=== PATIENT | male | born 1970 | race Caucasian/White ===

== ENCOUNTER 2018-01-26 16:15 | Observation (INO) | payer OTHER ==
[2018-01-26] VITALS (7 sets, daily range): BP systolic 152–193; BP diastolic 93–111; PULSE 58–69; RESP 16–18; TEMP 97.8–98.1; O2SAT 97–100
[~2018-01-26] VITALS: Ht 200.7 cm; Wt 122.5 kg
[2018-01-26] MEDS ORDERED: ZANT150T2 PO (18:05)
[2018-01-26] MEDS ORDERED: tumeric (18:05)
[2018-01-26] MEDS ORDERED: FISHCAP4 PO (18:05)
[2018-01-26] MEDS ORDERED: cla (18:05)
[2018-01-26] MEDS ORDERED: SACC1CAP3 PO (18:05)
[2018-01-26] MEDS ORDERED: ASPIRIN 81 MG CHEW TAB CHEW ONE (18:30)
[2018-01-26] MEDS ORDERED: SODIUM CHLORIDE 0.9% FLUSH 10 ML FLUSH IVF PRN (18:30)
[2018-01-26 18:42] LABS: AUTOMATED NEUTROPHIL # 4.4 TH/MM3 (1.8-7.7); BASOPHIL % 0.6 % (0.0-2.0); EOSINOPHIL # 0.1 TH/MM3 (0-0.4); EOSINOPHIL % 0.9 % (0.0-4.0); LYMPH % 27.7 % (9.0-44.0); MEAN CELL VOLUME 92.2 FL (80.0-100.0); MEAN CORPUSCULAR HGB CONC 35.7 % (32.0-36.0); MEAN PLATELET VOLUME 7.8 FL (7.0-11.0); MONO % 9.3 % (0.0-8.0); MONOCYTE # 0.7 TH/MM3 (0-0.9); NEUT % 61.5 % (16.0-70.0); PLATELET COUNT 189 TH/MM3 (150-450); RED BLOOD COUNT 4.56 MIL/MM3 (4.50-5.90); WHITE BLOOD COUNT 7.1 TH/MM3 (4.0-11.0)
--- NOTE | 2018-01-26 18:44 | PD ---
HPI Chief Complaint: Chest Pain Time Seen by Provider: 18:17 Travel History International Travel<30 days: No Contact w/Intl Traveler<30days: No Traveled to known affect area: No History of Present Illness HPI 47-year-old male presents to the emergency Department treatment we show bilateral lower chest pain that started approximately 3 hours prior to arrival. Patient is on his way home from [place] we start with chest pain, numbness to all extremities and cramping in his lower legs. Patient reports history of high triglycerides, hypertension. He has not been on any medications in several months. He states this was due to lack of insurance and unable to follow-up with her primary care physician. Patient denies any fevers or chills. No hemoptysis. No leg edema. No history DVT or PE. He denies any exacerbating or relieving factors. Moderate severity. 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) Social History Alcohol Use: Yes (DAILY) Tobacco Use: No Substance Use: No Allergies-Medications (Allergen,Severity, Reaction): Coded Allergies: No Known Allergies (Unverified , 01/26/18) Reported Meds & Prescriptions Reported Meds & Active Scripts Active Reported Probiotic (Saccharomyces Boulardii) 250 Mg Cap 250 Mg PO BID [cla] Zantac (Ranitidine HCl) 150 Mg Tab 150 Mg PO BID [tumeric] Fish Oil + D3 (Fish Oil-Cholecalciferol) 1,200-1,000 Mg-Unit Cap 1 Cap PO DAILY Review of Systems Except as stated in HPI: all other systems reviewed are Neg Physical Exam Narrative GENERAL: Well-nourished, well-developed male patient, afebrile. SKIN: Focused skin assessment warm/dry. HEAD: Normocephalic. Atraumatic. EYES: No scleral icterus. No injection or drainage. NECK: Supple, trachea midline. No JVD or lymphadenopathy. CARDIOVASCULAR: Regular rate and rhythm without murmurs, gallops, or rubs. Bilateral radial and pedal pulses are 2+ RESPIRATORY: Breath sounds equal bilaterally. No accessory muscle use. Lungs sounds are clear to auscultation. GASTROINTESTINAL: Abdomen soft, non-tender, nondistended. MUSCULOSKELETAL: No cyanosis, or edema. BACK: Nontender without obvious deformity. No CVA tenderness. Data Data Last Documented VS Vital Signs Date Time Temp Pulse Resp B/P (MAP) Pulse Ox O2 Delivery O2 Flow Rate FiO2 01/26/18 19:29 58 16 175/94 (121) 99 Room Air 01/26/18 16:35 97.8 Orders Orders Electrocardiogram (01/26/18 18:15) Complete Blood Count With Diff (01/26/18 18:15) Basic Metabolic Panel (Bmp) (01/26/18 18:15) Ckmb (Isoenzyme) Profile (01/26/18 18:15) Troponin I (01/26/18 18:15) Chest, Single Ap (01/26/18 18:15) Iv Access Insert/Monitor (01/26/18 18:15) Ecg Monitoring (01/26/18 18:15) Oxygen Administration (01/26/18 18:15) Oximetry (01/26/18 18:15) Hepatic Functional Panel (01/26/18 18:28) Lipase (01/26/18 18:28) Act Partial Throm Time (Ptt) (01/26/18 18:28) Prothrombin Time / Inr (Pt) (01/26/18 18:28) Aspirin Chew (Aspirin Chew) (01/26/18 18:30) Magnesium (Mg) (01/26/18 18:28) Bilateral Bp Monitoring (01/26/18 18:28) Sodium Chloride 0.9% Flush (Ns Flush) (01/26/18 18:30) CKMB (01/26/18 18:10) CKMB% (01/26/18 18:10) Sodium Chlor 0.9% 1000 Ml Inj (Ns 1000 M (01/26/18 20:15) Insulin Human Regular Inj (Novolin R Inj (01/26/18 20:15) Labs Laboratory Tests Test 01/26/18 18:10 01/26/18 18:40 White Blood Count 7.1 TH/MM3 Red Blood Count 4.56 MIL/MM3 Hemoglobin 15.0 GM/DL Hematocrit 42.0 % Mean Corpuscular Volume 92.2 FL Mean Corpuscular Hemoglobin 33.0 PG Mean Corpuscular Hemoglobin Concent 35.7 % Red Cell Distribution Width 13.0 % Platelet Count 189 TH/MM3 Mean Platelet Volume 7.8 FL Neutrophils (%) (Auto) 61.5 % Lymphocytes (%) (Auto) 27.7 % Monocytes (%) (Auto) 9.3 % Eosinophils (%) (Auto) 0.9 % Basophils (%) (Auto) 0.6 % Neutrophils # (Auto) 4.4 TH/MM3 Lymphocytes # (Auto) 2.0 TH/MM3 Monocytes # (Auto) 0.7 TH/MM3 Eosinophils # (Auto) 0.1 TH/MM3 Basophils # (Auto) 0.0 TH/MM3 CBC Comment DIFF FINAL Differential Comment Blood Urea Nitrogen 16 MG/DL Creatinine 1.17 MG/DL Random Glucose 381 MG/DL Calcium Level 8.9 MG/DL Sodium Level 128 MEQ/L Potassium Level 4.6 MEQ/L Chloride Level 91 MEQ/L Carbon Dioxide Level 23.6 MEQ/L Anion Gap 13 MEQ/L Estimat Glomerular Filtration Rate 67 ML/MIN Magnesium Level 2.3 MG/DL Total Bilirubin 0.8 MG/DL Direct Bilirubin 0.2 MG/DL Indirect Bilirubin 0.6 MG/DL Aspartate Amino Transf (AST/SGOT) 78 U/L Alanine Aminotransferase (ALT/SGPT) 109 U/L Alkaline Phosphatase 88 U/L Total Creatine Kinase 110 U/L Creatine Kinase MB 1.1 NG/ML Troponin I LESS THAN 0.02 NG/ML Total Protein 8.2 GM/DL Albumin 3.7 GM/DL Lipase 298 U/L Prothrombin Time 10.2 SEC Prothromb Time International Ratio 1.0 RATIO Activated Partial Thromboplast Time 27.6 SEC [facility] Medical Decision Making Medical Screen Exam Complete: Yes Emergency Medical Condition: Yes Medical Record Reviewed: Yes Interpretation(s) Last Impressions Chest X-Ray 01/26/185 Signed Impressions: Service Date/Time: Friday, January 26, 2018 18:22 - CONCLUSION: No acute disease. Rishabh Alcaraz MD Differential Diagnosis ACS versus chest wall pain versus anxiety versus pancreatitis versus pneumonia versus pneumothorax Narrative Course 47-year-old male presents to the emergency department for evaluation of chest pain that started just prior to arrival. EKG shows sinus rhythm, no acute ST changes. CBC, CMP, CK, troponin, magnesium, lipase, PTT, PT/INR are ordered and pending. Aspirin 160 g by mouth is given. Chest x-ray is ordered and pending. CBC shows no acute abnormality. CMP shows hyponatremia 128, glucose 381, AST 78 , ALT 109. CK is 110. Troponin is less than 0.02. Magnesium is 2.3. Lipase is 298. Coags are unremarkable. Chest x-ray shows no acute disease. Patient will be admitted the chest pain center for further evaluation. He agrees to this. Diagnosis Primary Impression: Chest pain Qualified Codes: R07.9 - Chest pain, unspecified Admitting Information Admitting Physician Requests: Fatou Hernadez Jan 26, 2018 18:44
--- NOTE | 2018-01-26 19:12 | RADRPT ---
EXAM DATE/TIME: 01/26/2018 18:22 [facility] COMPARISON: No previous studies available for comparison. INDICATIONS : Chest pain. MEDICAL HISTORY : None. SURGICAL HISTORY : None. ENCOUNTER: Initial ACUITY: 1 day PAIN SCORE: 2/10 LOCATION: Bilateral chest FINDINGS: A single view of the chest demonstrates the lungs to be symmetrically aerated without evidence of mas s, infiltrate or effusion. The cardiomediastinal contours are unremarkable. Osseous structures are intact. CONCLUSION: No acute disease. Rishabh Alcaraz MD on January 26, 2018 at 19:09 Board Certified Radiologist. This report was verified electronically.
[2018-01-26 19:21] LABS: BICARBONATE 23.6 MEQ/L (21.0-32.0); BLOOD UREA NITROGEN 16 MG/DL (7-18); CALCIUM 8.9 MG/DL (8.5-10.1); CHLORIDE 91 MEQ/L (98-107); CREATININE 1.17 MG/DL (0.60-1.30); GLOMERULAR FILTRATION RATE 67 ML/MIN (>89); GLUCOSE,RANDOM 381 MG/DL (74-106); SODIUM (NA) 128 MEQ/L (136-145)
[2018-01-26 19:25] LABS: TROPONIN I LESS THAN 0.02 NG/ML (0.02-0.05)
[2018-01-26 19:47] LABS: PROTHROMBIN TIME - PATIENT 10.2 SEC (9.8-11.6)
[2018-01-26 19:55] LABS: TOTAL BILIRUBIN ADULT 0.8 MG/DL (0.2-1.0); TOTAL PROTEIN 8.2 GM/DL (6.4-8.2)
[2018-01-26 20:00] LABS: ALBUMIN 3.7 GM/DL (3.4-5.0); DIRECT BILIRUBIN ADULT 0.2 MG/DL (0.0-0.2); INDIRECT BILIRUBIN 0.6 MG/DL (0.0-0.8)
[2018-01-26 20:01] LABS: MAGNESIUM 2.3 MG/DL (1.5-2.5)
[2018-01-26] MEDS ORDERED: SODIUM CHLOR 0.9% 1000 ML INJ 1,000 ML IV ONE (20:15)
[2018-01-26] MEDS ORDERED: INSULIN HUMAN REGULAR 1,000 UNITS/10 ML VIAL SQ ONE (20:15)
[2018-01-26 21:49] LABS: TROPONIN I LESS THAN 0.02 NG/ML (0.02-0.05)
[2018-01-27] VITALS (8 sets, daily range): BP systolic 130–156; BP diastolic 86–95; PULSE 60–77; RESP 18; TEMP 97.7–98.7; O2SAT 95–99
[2018-01-27 01:17] LABS: TROPONIN I LESS THAN 0.02 NG/ML (0.02-0.05)
[2018-01-27] MEDS ORDERED: NITROGLYCERIN 0.4 MG SL 25 TABS/BTL SL PRN (07:45)
[2018-01-27] MEDS ORDERED: ACETAMINOPHEN 500 MG CPLT PO PRN (07:45)
[2018-01-27] MEDS ORDERED: ONDANSETRON HCL 4 MG/2 ML VIAL IV PUSH PRN (07:45)
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
[2018-01-27] MEDS ORDERED: SODIUM CHLORIDE 0.9% FLUSH 10 ML FLUSH IV FLUSH SCH (09:00)
[2018-01-27] MEDS ORDERED: ASPIRIN 325 MG TAB PO SCH (09:00)
[2018-01-27] MEDS ORDERED: amLODIPine BESYLATE 5 MG TAB PO SCH (09:00)
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
--- NOTE | 2018-01-27 11:56 | TR ---
Date Performed: 01/27/2018 Time Performed: 11:23:50 DOCTOR: Messi Santana DRUG LIST: CLINICAL HISTORY: CHEST PAIN REASON FOR TEST: Chest pain REASON FOR ENDING: OBSERVATION: CONCLUSION: Landon protocol completed. Stopped sec to exceeding target heart rate and chronic rig ht knee discomfort. Maximum FW=904 Target HR Achieved=88.0% Maximum VH=953/98. No reprod chest discom fort. No ectopy. Good exercise tolerance. St changes inferior/laterally, changes nondiagnositic. Hype rtensive bp response. Recovery quick and unremarkable. COMMENTS:
--- NOTE | 2018-01-27 12:29 | EKG ---
Date Performed: 01/27/2018 Time Performed: 00:32:47 PTAGE: 47 years EKG: SINUS BRADYCARDIA MARKED LEFT AXIS DEVIATION POSSIBLE RIGHT VENTRICULAR CONDUCTION DELAY AB NORMAL ECG No change from prior tracing PREVIOUS TRACING : 01/26/2018 21.05 DOCTOR: Messi Santana Interpretating Date/Time 01/27/2018 12:27:48
--- NOTE | 2018-01-27 12:30 | EKG ---
Date Performed: 01/26/2018 Time Performed: 21:05:53 PTAGE: 47 years EKG: Sinus rhythm NORMAL ECG PREVIOUS TRACING : 01/26/2018 16.41 DOCTOR: Messi Santana Interpretating Date/Time 01/27/2018 12:29:46
--- NOTE | 2018-01-27 12:31 | EKG ---
Date Performed: 01/26/2018 Time Performed: 16:41:16 PTAGE: 47 years EKG: Sinus rhythm NORMAL ECG NO PREVIOUS TRACING DOCTOR: Messi Santana Interpretating Date/Time 01/27/2018 12:30:30
[2018-01-27] MEDS ORDERED: REGADENOSON INJ 0.4 MG/5 ML SYR ONE (13:38)
[2018-01-27] MEDS ORDERED: DEXTROSE 50% IN WATER 50 ML VIAL(D50) IV PUSH PRN (15:30)
[2018-01-27] MEDS ORDERED: GLUCAGON 1 MG/ML VIAL OTHER PRN (15:30)
--- NOTE | 2018-01-27 15:54 | RADRPT ---
EXAM DATE/TIME: 01/27/2018 13:46 [facility] COMPARISON: No previous studies available for comparison. INDICATIONS : Chest pain. Angina. DOSE: 35 mCi Tc99m Myoview at stress. 11 mCi Tc99m Myoview at rest. 0.4 mg Lexiscan STRESS SYMPTOMS: Shortness of breath, hot feeling. EJECTION FRACTION: 55% MEDICAL HISTORY : Hypertension. Hypertriglyceridemia SURGICAL HISTORY : Right knee and right foot surgery. ENCOUNTER: Initial ACUITY: 1 day PAIN SCALE: 3/10 LOCATION: Bilateral lower chest TECHNIQUE: The patient underwent pharmacologic stress with infusion of prescribed dose. Continuous ECG tracing was monitored during stress. Gated SPECT imaging was performed after stress and conventional SPECT i maging was performed at rest. The examination was performed on a SPECT/CT scanner, both attenuation and non-corrected datasets were reviewed. FINDINGS: DISTRIBUTION: The maximum perfused segment at stress is in the inferior wall. PERFUSION STUDY: The pattern of perfusion at stress is within normal limits. GATED STUDY: There is intact wall motion and thickening without hypokinetic or dyskinetic segments. CONCLUSION: No areas of ischemia are seen. RISK CATEGORY: Low (<1% Annual Mortality Rate) Frederic Castillo MD on January 27, 2018 at 15:49 Board Certified Radiologist. This report was verified electronically.
[2018-01-27] MEDS ORDERED: METF500T PO (16:03)
[2018-01-27] MEDS ORDERED: LISI10TA3 PO (16:03)
--- NOTE | 2018-01-27 16:04 | HHI.DCPOC ---
Discharge Care Plan Diagnosis: (1) Atypical chest pain (2) Hypertension (3) Type 2 diabetes mellitus Goals to Promote Your Health * To prevent worsening of your condition and complications * To maintain your health at the optimal level Directions to Meet Your Goals Take your medications as prescribed Follow your dietary instruction Follow activity as directed Keep your appointments as scheduled Take your immunizations and boosters as scheduled If your symptoms worsen call your PCP, if no PCP go to Urgent Care Center or Emergency Room Smoking is Dangerous to Your Health. Avoid second hand smoke Call the 24-hour hour crisis hotline for domestic abuse at Jesica Rice Jan 27, 2018 16:04
[2018-01-27] MEDS ORDERED: INSULIN ASPART SUPPLEMENTAL SCALE SQ SCH (17:00)
--- NOTE | 2018-01-28 17:53 | TR ---
Date Performed: 01/27/2018 Time Performed: 14:14:59 DOCTOR: Messi Santana DRUG LIST: CLINICAL HISTORY: ANGINA REASON FOR TEST: REASON FOR ENDING: OBSERVATION: CONCLUSION: Lexiscan stress test was performed under standard four minute protocol. Radionuclide was injected one minute prior to ending the test. No electrocardiographic abormalities were present to suggest ischemia. Nuclear imaging and interpretation are pending. COMMENTS:
== END 2018-01-27 18:37 | disposition home or self-care (01) ==
LOC: NEPE 16:15 → NEDA 20:10 → NEPFCDU 21:25
PROVIDERS: ADMIT Internal Medicine Interventional Cardiology; ATTEND Internal Medicine Interventional Cardiology
DX: R07.89 Other chest pain (principal); I10 Essential (primary) hypertension; E11.9 Type 2 diabetes mellitus without complications; E87.1 Hypo-osmolality and hyponatremia; E78.1 Pure hyperglyceridemia; R20.0 Anesthesia of skin; R20.2 Paresthesia of skin; R94.31 Abnormal electrocardiogram [ECG] [EKG]
CPT/HCPCS: 71045; 78452; 80048; 80076; 82550; 82552; 82948; 83690; 83735; 84484; 85025; 85610; 85730; 93005; 93017; 96372; 99285; A9502; G0378; J1815; J2785; J7030